=== PATIENT | male | born 1935 | race Hispanic/Latino ===

== ENCOUNTER 2019-08-04 01:36 | Inpatient (IN) | payer MEDICARE ==
[~2019-08-04] VITALS: Ht 177.8 cm; Wt 91.3 kg
[2019-08-04 01:54] LABS: APPEARANCE,URINE Clear (CLEAR); BILIRUBIN,URINE Negative (NEGATIVE); COLOR,URINE Yellow (YELLOW); GLUCOSE, URINE (UA) Negative (NEGATIVE); KETONES,URINE Negative (NEGATIVE); LEUKOCYTE ESTERASE ,URINE Negative (NEGATIVE); NITRATE,URINE Negative (NEGATIVE); OCCULT BLOOD,URINE Negative (NEGATIVE); PROTEIN,URINE Trace mg/dL (NEGATIVE); UROBILINOGEN,URINE 0.2 mg/dL (0.2-1.0)
[2019-08-04] MEDS ORDERED: ACETAMINOPHEN 325 MG TAB ONE (02:06)
[2019-08-04 02:10] LABS: BASOPHILS % (AUTO) 0.4 % (0.0-5.0); EOSINOPHILS % (AUTO) 0.5 % (0.0-8.0); HEMATOCRIT 43.4 % (42-54); LYMPHOCYTES % (AUTO) 5.2 % (21.0-51.0); MEAN CORPUSCULAR HEMOGLOBIN 30.1 pg (27.0-33.0); MEAN CORPUSCULAR HGB CONC 32.5 g/dL (32.0-36.0); MEAN CORPUSCULAR VOLUME 92.7 fL (79-99); MONOCYTES % (AUTO) 4.1 % (3.0-13.0); NEUTROPHILS % (AUTO) 89.4 % (40.0-77.0); PLATELET COUNT (AUTO) 150 K/uL (130-400); RED BLOOD CELL COUNT(AUTO) 4.68 MIL/uL (4.50-6.20); RED CELL DISTRIBUTION WIDTH 15.2 % (11.0-15.5); WHITE BLOOD COUNT (AUTO) 10.9 K/uL (4.8-10.8)
[2019-08-04 02:20] LABS: CARBON DIOXIDE 30 mmol/L (21-32); CHLORIDE 104 mmol/L (101-111); CREATININE 1.1 mg/dL (0.5-1.5); GLOMERULAR FILTR. RATE CALC 68 mL/min (>60); GLUCOSE,RANDOM 105 mg/dL (70-105); POTASSIUM 4.2 mmol/L (3.5-5.1); SODIUM SERUM 139 mmol/L (136-145); UREA NITROGEN, BLOOD 18 mg/dL (7-18)
[2019-08-04 02:21] LABS: INR 0.94 (0.85-1.15); PARTIAL THROMBOPLASTIN TIME 27.8 SEC (26.3-35.5); PROTHROMBIN TIME 10.2 SEC (9.6-11.6)
[2019-08-04 02:39] LABS: ALANINE AMINOTRANSFERASE 21 U/L (12-78); ALBUMIN 3.8 g/dL (3.5-5.0); ASPARTATE AMINOTRANSFERASE 22 U/L (10-37); BILIRUBIN,TOTAL 0.5 mg/dL (0.2-1.0); CREATINE KINASE, TOTAL 76 U/L (21-232); MYOGLOBIN 55 ng/mL (10-92); TOTAL PROTEIN, SERUM 7.5 g/dL (6.0-8.3); TROPONIN I < 0.04 ng/mL (0.00-0.06)
[2019-08-04 02:49] LABS: PLATELET MORPHOLOGY PLT CLUMPS PRESENT
[2019-08-04] MEDS ORDERED: CEFTRIAXONE SODIUM 2 GM VIAL ONE (03:17)
[2019-08-04] MEDS ORDERED: ONDANSETRON HCL 4 MG/2 ML VIAL IV PRN (04:15)
[2019-08-04] MEDS ORDERED: ACETAMINOPHEN 325 MG TAB PO PRN ×2 (04:15)
[2019-08-04] MEDS ORDERED: MORPHINE SULFATE 2 MG/ML 1ML SYG IV PRN (04:15)
[2019-08-04 05:40] VITALS: BP 150/82
[2019-08-04] MEDS ORDERED: METO-391 PO (06:24)
[2019-08-04] MEDS ORDERED: APIX5TAB PO (06:24)
[2019-08-04] MEDS ORDERED: DUTA.5 PO (06:24)
[2019-08-04] MEDS ORDERED: RAMI10CA58 PO (06:24)
[2019-08-04] MEDS ORDERED: ISOS60TA4 PO (06:24)
[2019-08-04 07:58] VITALS: BP 149/80
[2019-08-04] MEDS: METOPROLOL TARTRATE 50 MG TAB PO SCH ×2 (09:07→20:35)
[2019-08-04] MEDS: FAMOTIDINE/PF 20 MG/2 ML VIAL IV SCH ×2 (09:07→20:35)
[2019-08-04] MEDS: CEFTRIAXONE SODIUM 1 GM IVP SCH ×2 (11:12→22:14)
[2019-08-04 11:13] VITALS: BP 148/77
[2019-08-04] MEDS: AZITHROMYCIN 500MG+NS 250ML 250 ML IV SCH (11:13)
--- NOTE | 2019-08-04 13:44 | NUR ---
1240 patient signed IM Letter, I faxed IM Letter to [phone] and placed in chart under consent tab.
--- NOTE | 2019-08-04 16:13 | NUR ---
DCP CM spoke to pt's spouse Ad Gallardo discussed dc plans. Per spouse pt was independent prior to admission, lives at home w/spouse. Denies any equipments/services. Feels safe to go back home, still drives, spouse able to assist with transportation and needs as necessary. DC plan to home once stable. CM to cont to follow up. Addendum: 08/04/19 at 1614 by MISA JASSO LVN CM Amended: Links added.
[2019-08-04 16:19] VITALS: BP 166/94
[2019-08-04] MEDS ORDERED: PHARMACY COMMUNICATION MISC SCH (17:30)
--- NOTE | 2019-08-04 18:50 | NUR ---
Pulse Ox is off patient Saturation levels are good. Addendum: 08/04/19 at 1851 by CASS SALAZAR RT Amended: Links added.
[2019-08-04 20:17] VITALS: BP 165/95
[2019-08-04] MEDS: APIXABAN 5 MG TABLET PO SCH (20:34)
[2019-08-04] MEDS: FINASTERIDE 5 MG TABLET PO SCH (20:35)
[2019-08-04] MEDS: LISINOPRIL 40 MG TABLET PO SCH (20:35)
[2019-08-04] MEDS ORDERED: RAMIPRIL PO SCH (21:00)
[2019-08-04] MEDS ORDERED: APIXABAN 5 MG TABLET PO SCH (21:00)
[2019-08-04 23:12] VITALS: BP 139/77
[2019-08-05 03:33] VITALS: BP 154/89
[2019-08-05 05:39] LABS: BASOPHILS % (AUTO) 0.7 % (0.0-5.0); EOSINOPHILS % (AUTO) 1.1 % (0.0-8.0); HEMATOCRIT 39.9 % (42-54); LYMPHOCYTES % (AUTO) 14.5 % (21.0-51.0); MEAN CORPUSCULAR HEMOGLOBIN 29.7 pg (27.0-33.0); MEAN CORPUSCULAR HGB CONC 32.3 g/dL (32.0-36.0); MEAN CORPUSCULAR VOLUME 91.9 fL (79-99); MONOCYTES % (AUTO) 13.7 % (3.0-13.0); NEUTROPHILS % (AUTO) 69.6 % (40.0-77.0); PLATELET COUNT (AUTO) 138 K/uL (130-400); RED BLOOD CELL COUNT(AUTO) 4.34 MIL/uL (4.50-6.20); RED CELL DISTRIBUTION WIDTH 15.1 % (11.0-15.5); WHITE BLOOD COUNT (AUTO) 5.5 K/uL (4.8-10.8)
[2019-08-05 06:38] LABS: CREATININE 1.2 mg/dL (0.5-1.5); POTASSIUM 3.9 mmol/L (3.5-5.1)
[2019-08-05 08:00] VITALS: BP 150/89
[2019-08-05] MEDS: ISOSORBIDE MONO 60 MG TAB.SR PO SCH (11:49)
[2019-08-05] MEDS: APIXABAN 5 MG TABLET PO SCH ×2 (11:50→21:55)
[2019-08-05] MEDS: METOPROLOL TARTRATE 50 MG TAB PO SCH ×2 (11:50→21:55)
[2019-08-05] MEDS: AZITHROMYCIN 500MG+NS 250ML 250 ML IV SCH (11:51)
[2019-08-05] MEDS: CEFTRIAXONE SODIUM 1 GM IVP SCH ×2 (11:51→21:56)
[2019-08-05] MEDS: FAMOTIDINE/PF 20 MG/2 ML VIAL IV SCH ×2 (11:51→21:55)
[2019-08-05 12:00] VITALS: BP 148/88
[2019-08-05 16:00] VITALS: BP 133/79
[2019-08-05 21:48] VITALS: BP 142/84
[2019-08-05] MEDS: FINASTERIDE 5 MG TABLET PO SCH (21:56)
[2019-08-05] MEDS: LISINOPRIL 40 MG TABLET PO SCH (21:56)
[2019-08-06 00:25] VITALS: BP 140/79
[2019-08-06 04:37] VITALS: BP 150/89
[2019-08-06 06:10] LABS: BASOPHILS % (AUTO) 0.5 % (0.0-5.0); EOSINOPHILS % (AUTO) 2.4 % (0.0-8.0); LYMPHOCYTES % (AUTO) 16.7 % (21.0-51.0); MEAN CORPUSCULAR HGB CONC 32.3 g/dL (32.0-36.0); MEAN CORPUSCULAR VOLUME 92.9 fL (79-99); MONOCYTES % (AUTO) 17.5 % (3.0-13.0); NEUTROPHILS % (AUTO) 62.5 % (40.0-77.0); PLATELET COUNT (AUTO) 142 K/uL (130-400); RED CELL DISTRIBUTION WIDTH 15.1 % (11.0-15.5); WHITE BLOOD COUNT (AUTO) 5.5 K/uL (4.8-10.8)
[2019-08-06 08:00] VITALS: BP 141/86
[2019-08-06] MEDS: METOPROLOL TARTRATE 50 MG TAB PO SCH (09:21)
[2019-08-06] MEDS: APIXABAN 5 MG TABLET PO SCH (09:21)
[2019-08-06] MEDS: ISOSORBIDE MONO 60 MG TAB.SR PO SCH (09:21)
[2019-08-06] MEDS: FAMOTIDINE/PF 20 MG/2 ML VIAL IV SCH (09:22)
[2019-08-06] MEDS: CEFTRIAXONE SODIUM 1 GM IVP SCH (11:00)
[2019-08-06] MEDS: AZITHROMYCIN 500MG+NS 250ML 250 ML IV SCH (11:00)
[2019-08-06] MEDS ORDERED: CEFU500T67 PO (11:40)
[2019-08-06 12:00] VITALS: BP 127/82
--- NOTE | 2019-08-06 13:15 | NUR ---
DISCHARGE PATIENT GIVEN DISCHARGE INSTRUCTIONS VIA TEACH BACK. 20G PIV TO RAC DISCONTINUED, TIP INTACT. RX GIVEN FOR CEFUROXIME 500MG 1 CAP PO BID X 5 DAYS. PATIENT TO FOLLOW UP WITH DR. JUDGE IN 3 TO 5 DAYS. PATIENT STABLE AT THIS TIME. PATIENT WHEELED TO [facility].
== END 2019-08-06 13:13 | disposition home or self-care (01) | DRG 871 ==
LOC: EDH 01:36 → EDHIP 04:15 → OBSVTOIN 04:15 → 3AH 05:04
PROVIDERS: ADMIT Internal Medicine; ATTEND Internal Medicine
DX: A41.9 Sepsis, unspecified organism (principal); J18.9 Pneumonia, unspecified organism; D68.59 Other primary thrombophilia; I10 Essential (primary) hypertension; I48.91 Unspecified atrial fibrillation; I25.10 Atherosclerotic heart disease of native coronary artery without angina pectoris; N40.1 Benign prostatic hyperplasia with lower urinary tract symptoms; R35.0 Frequency of micturition; E66.9 Obesity, unspecified; Z68.28 Body mass index [BMI] 28.0-28.9, adult; Z88.2 Allergy status to sulfonamides; Z79.01 Long term (current) use of anticoagulants; Z95.5 Presence of coronary angioplasty implant and graft; Z79.899 Other long term (current) drug therapy
CPT/HCPCS: 36415; 71045; 71250; 76770; 80048; 80053; 81003; 82550; 82728; 83605; 83615; 83874; 83880; 84145; 84484; 85025; 85378; 85610; 85730; 86140; 87040; 87088; 87633; 87804; 93005; 94760; A4606; G0378; J0456; J0696; J3490

== ENCOUNTER 2022-02-05 16:17 | Observation (INO) | payer MEDICARE ==
[~2022-02-05] VITALS: Ht 177.8 cm; Wt 91.0 kg
[~2022-02-05 16:17] MED LIST: APIX5TAB PO; CEFU500T67 PO; DUTA.5 PO; ISOS60TA77 PO; METO-391 PO; RAMI10CA58 PO
[2022-02-05 16:45] LABS: BASOPHILS % (AUTO) 0.3 % (0.0-5.0); EOSINOPHILS % (AUTO) 0.4 % (0.0-8.0); HEMATOCRIT 41.3 % (42-54); LYMPHOCYTES % (AUTO) 11.5 % (21.0-51.0); MEAN CORPUSCULAR HEMOGLOBIN 30.1 pg (27.0-33.0); MEAN CORPUSCULAR HGB CONC 32.7 g/dL (32.0-36.0); MEAN CORPUSCULAR VOLUME 92.2 fL (79-99); MONOCYTES % (AUTO) 7.5 % (3.0-13.0); NEUTROPHILS % (AUTO) 79.9 % (40.0-77.0); PLATELET COUNT (AUTO) 169 K/uL (130-400); RED BLOOD CELL COUNT(AUTO) 4.48 MIL/uL (4.50-6.20); RED CELL DISTRIBUTION WIDTH 13.7 % (11.0-15.5)
[2022-02-05 16:54] LABS: CREATININE 1.4 mg/dL (0.5-1.5); POTASSIUM 4.2 mmol/L (3.5-5.1)
[2022-02-05 16:59] LABS: ALBUMIN 3.2 g/dL (3.5-5.0); TOTAL PROTEIN, SERUM 7.1 g/dL (6.0-8.3)
[2022-02-05] MEDS ORDERED: ASPIRIN 325MG TAB PO ONE (17:30)
[2022-02-05] MEDS ORDERED: NITROGLYCERIN 1GM OINT 1 INCH/1GM TD ONE (17:30)
[2022-02-05] MEDS ORDERED: LACTULOSE 20 GM/30 ML UDCUP PO PRN (19:00)
[2022-02-05] MEDS ORDERED: ACETAMINOPHEN 325 MG TAB PO PRN ×2 (19:00)
[2022-02-05] MEDS ORDERED: ONDANSETRON 4MG INJ IV PRN (19:00)
[2022-02-05 19:33] LABS: MAGNESIUM 1.9 mg/dL (1.80-2.40); THYROID STIMULATING HORMONE 1.27 uIU/mL (0.36-3.74)
[2022-02-05] MEDS: METOPROLOL TARTRATE 25 MG TAB PO SCH (21:13)
[2022-02-05] MEDS: ATORVASTATIN 20 MG TABLET PO SCH (21:13)
[2022-02-06 00:50] VITALS: BP 130/70
[2022-02-06 04:00] VITALS: BP 114/58
[2022-02-06 08:00] VITALS: BP 132/74
[2022-02-06] MEDS: METOPROLOL TARTRATE 25 MG TAB PO SCH ×2 (09:08→20:46)
[2022-02-06] MEDS: FAMOTIDINE 20MG TAB PO SCH (09:08)
[2022-02-06] MEDS: ASPIRIN 81 MG EC TAB PO SCH (09:08)
[2022-02-06] MEDS ORDERED: RAMI10CA69 PO (11:10)
[2022-02-06] MEDS ORDERED: DUTA0.5C37 PO (11:10)
[2022-02-06] MEDS ORDERED: METO-409 PO (11:10)
[2022-02-06] MEDS ORDERED: ISOS60TA77 PO (11:10)
[2022-02-06 11:23] LABS: CREATININE 1.2 mg/dL (0.5-1.5); MAGNESIUM 1.9 mg/dL (1.80-2.40); POTASSIUM 3.7 mmol/L (3.5-5.1)
[2022-02-06 12:00] VITALS: BP 132/77
[2022-02-06] MEDS ORDERED: KCL 20 MEQ ERTAB PO SCH (12:00)
[2022-02-06] MEDS ORDERED: MAGNESIUM 2GM PREMIX 50ML 50 ML IV PRN (12:00)
[2022-02-06 16:00] VITALS: BP 157/85
[2022-02-06] MEDS ORDERED: 0.9%NACL 1000ML 500 ML IV ONE (19:00)
[2022-02-06] MEDS ORDERED: IOHEXOL 350 MG/ML 100ML INFUS..BTL IV ONE (19:57)
[2022-02-06 20:00] VITALS: BP 162/84
[2022-02-06 20:00] LABS: APPEARANCE,URINE CLEAR (CLEAR); BILIRUBIN,URINE NEGATIVE (NEGATIVE); COLOR,URINE LIGHT-YELLOW (YELLOW); GLUCOSE, URINE (UA) NEGATIVE (NEGATIVE); KETONES,URINE NEGATIVE (NEGATIVE); LEUKOCYTE ESTERASE ,URINE NEGATIVE Leu/uL (NEGATIVE); NITRATE,URINE NEGATIVE (NEGATIVE); OCCULT BLOOD,URINE NEGATIVE (NEGATIVE); PROTEIN,URINE NEGATIVE (NEGATIVE); UROBILINOGEN,URINE 0.2 mg/dL (0.2-1.0)
[2022-02-06] MEDS: ATORVASTATIN 20 MG TABLET PO SCH (20:46)
[2022-02-06] MEDS ORDERED: LISINOPRIL 40 MG TABLET PO SCH (21:00)
[2022-02-06] MEDS ORDERED: LISINOPRIL 20 MG TABLET PO SCH (23:30)
[2022-02-07] VITALS (9 sets, daily range): BP systolic 117–165; BP diastolic 75–98
[2022-02-07 05:18] LABS: BASOPHILS % (AUTO) 0.5 % (0.0-5.0); EOSINOPHILS % (AUTO) 2.7 % (0.0-8.0); HEMATOCRIT 38.2 % (42-54); LYMPHOCYTES % (AUTO) 19.8 % (21.0-51.0); MEAN CORPUSCULAR HEMOGLOBIN 29.9 pg (27.0-33.0); MEAN CORPUSCULAR HGB CONC 32.5 g/dL (32.0-36.0); MONOCYTES % (AUTO) 10.8 % (3.0-13.0); NEUTROPHILS % (AUTO) 65.7 % (40.0-77.0); PLATELET COUNT (AUTO) 150 K/uL (130-400); RED BLOOD CELL COUNT(AUTO) 4.15 MIL/uL (4.50-6.20); RED CELL DISTRIBUTION WIDTH 13.8 % (11.0-15.5); WHITE BLOOD COUNT (AUTO) 7.5 K/uL (4.8-10.8)
[2022-02-07 05:31] LABS: CREATININE 1.1 mg/dL (0.5-1.5); MAGNESIUM 1.9 mg/dL (1.80-2.40); POTASSIUM 4.2 mmol/L (3.5-5.1)
[2022-02-07 05:33] LABS: PROTHROMBIN TIME 10.9 SEC (9.6-11.6)
[2022-02-07 05:34] LABS: PARTIAL THROMBOPLASTIN TIME 28.9 SEC (26.3-35.5)
[2022-02-07] MEDS: ASPIRIN 81 MG EC TAB PO SCH (08:54)
[2022-02-07] MEDS: METOPROLOL TARTRATE 25 MG TAB PO SCH ×2 (08:56→20:16)
[2022-02-07] MEDS: ISOSORBIDE MONO 60MG SR TAB PO SCH (08:56)
[2022-02-07] MEDS: FAMOTIDINE 20MG TAB PO SCH (08:56)
[2022-02-07] MEDS ORDERED: NICARDIPINE 25MG INJ IV ONE (10:38)
[2022-02-07] MEDS ORDERED: HEPARIN 10,000 UNIT/10ML (1,000 UNIT/ML) VIAL ONE (10:38)
[2022-02-07] MEDS ORDERED: FENTANYL CITRATE PF 50 MCG/1 ML 2ML VIAL ONE (10:39)
[2022-02-07] MEDS ORDERED: MIDAZOLAM HCL 1 MG/ML 2ML VIAL ONE (10:39)
[2022-02-07] MEDS ORDERED: IOHEXOL-350 50ML VIAL IV ONE (10:39)
[2022-02-07] MEDS ORDERED: IOHEXOL 350 MG/ML 100ML INFUS..BTL IV ONE ×3 (10:39→12:00)
[2022-02-07] MEDS ORDERED: NITROGLYCERIN 50MG VIAL ONE (10:39)
[2022-02-07] MEDS ORDERED: LIDOCAINE HCL 1% 20 ML VIAL ONE (10:40)
[2022-02-07] MEDS ORDERED: ASPIRIN 325MG EC TAB PO ONE (12:29)
[2022-02-07] MEDS ORDERED: CLOPIDOGREL 300MG TAB ONE (12:29)
[2022-02-07] MEDS ORDERED: ONDANSETRON 4MG INJ IVP PRN (13:00)
[2022-02-07] MEDS ORDERED: TEMAZEPAM 30 MG CAP PO PRN (13:00)
[2022-02-07] MEDS ORDERED: ACETAMINOPHEN WITH CODEINE 1 TAB TAB PO PRN (13:00)
[2022-02-07] MEDS ORDERED: 0.9%NACL 1000ML 1,000 ML IV SCH (13:00)
[2022-02-07] MEDS ORDERED: ASPIRIN 81 MG EC TAB PO SCH (14:30)
[2022-02-07] MEDS ORDERED: METOPROLOL TARTRATE 25 MG TAB PO SCH (14:30)
[2022-02-07] MEDS: ATORVASTATIN 20 MG TABLET PO SCH (20:16)
[2022-02-07] MEDS ORDERED: LISINOPRIL 20 MG TABLET PO SCH (21:00)
[2022-02-08 04:03] VITALS: BP 145/81
[2022-02-08 05:07] LABS: HEMATOCRIT 37.8 % (42-54); MEAN CORPUSCULAR HGB CONC 32.5 g/dL (32.0-36.0); MEAN CORPUSCULAR VOLUME 92.2 fL (79-99); RED BLOOD CELL COUNT(AUTO) 4.1 MIL/uL (4.50-6.20); WHITE BLOOD COUNT (AUTO) 11.3 K/uL (4.8-10.8)
[2022-02-08 05:23] LABS: CREATININE 1.2 mg/dL (0.5-1.5); POTASSIUM 4.3 mmol/L (3.5-5.1)
[2022-02-08 07:27] VITALS: BP 149/75
[2022-02-08] MEDS: ISOSORBIDE MONO 60MG SR TAB PO SCH (08:51)
[2022-02-08] MEDS: ASPIRIN 81 MG EC TAB PO SCH (08:51)
[2022-02-08] MEDS: FAMOTIDINE 20MG TAB PO SCH (08:52)
[2022-02-08] MEDS ORDERED: METOPROLOL SUCCINATE 50 MG TAB.SR.24H PO SCH (09:00)
[2022-02-08] MEDS ORDERED: PANTOPRAZOLE 40 MG TAB DR PO SCH (09:00)
[2022-02-08] MEDS ORDERED: CLOPIDOGREL 75MG TAB PO SCH (09:00)
[2022-02-08] MEDS ORDERED: DUTASTERIDE 0.5 MG PO SCH (09:00)
[2022-02-08] MEDS ORDERED: AMLODIPINE 5 MG TAB PO SCH (09:00)
[2022-02-08] MEDS ORDERED: ATOR40TA69 PO (10:19)
[2022-02-08] MEDS ORDERED: METO-409 PO (10:19)
[2022-02-08] MEDS ORDERED: LISI20TA24 PO (10:19)
[2022-02-08] MEDS ORDERED: CLOP-31 PO (10:19)
[2022-02-08] MEDS ORDERED: PANT40TA PO (10:19)
[2022-02-08] MEDS ORDERED: AMLO5TAB4 PO (10:19)
[2022-02-08] MEDS ORDERED: AEC81 PO (10:19)
[2022-02-08 12:27] VITALS: BP 126/73
[2022-02-08] MEDS ORDERED: ATORVASTATIN 40 MG TABLET PO SCH (21:00)
== END 2022-02-08 13:10 | disposition home or self-care (01) ==
LOC: EDH 16:17 → EDHIP 18:46 → INTOOBSV 18:46 → 3BH 02-06 00:57 → 3AH 02-07 14:26 → 3BH 02-07 14:27
PROVIDERS: ADMIT Internal Medicine; ATTEND Internal Medicine
DX: I48.0 Paroxysmal atrial fibrillation (principal); R77.8 Other specified abnormalities of plasma proteins; E78.5 Hyperlipidemia, unspecified; I11.0 Hypertensive heart disease with heart failure; I50.9 Heart failure, unspecified; I24.9 Acute ischemic heart disease, unspecified; I25.110 Atherosclerotic heart disease of native coronary artery with unstable angina pectoris; I25.2 Old myocardial infarction; I21.A1 Myocardial infarction type 2; N40.0 Benign prostatic hyperplasia without lower urinary tract symptoms; R22.43 Localized swelling, mass and lump, lower limb, bilateral; Z79.02 Long term (current) use of antithrombotics/antiplatelets; Z79.82 Long term (current) use of aspirin; Z79.899 Other long term (current) drug therapy; Z95.5 Presence of coronary angioplasty implant and graft
CPT/HCPCS: 99285; 84443; 83735 ×3; 84484 ×3; 80061 ×2; 80053; 83880; 85025 ×2; 84439; 36415 ×4; 71045; 93005 ×2; 80048 ×3; 85378; 81003; 71270; 93306; 93356; 93970; 93460; 96374; 85610; 85730; 97161; 97039; 84145; 85027; 97116; J7030; Q9967 ×5; C1769 ×4; C1887; C1894 ×2; C1874 ×2; C1725; Q9965 ×3; J3475; J3010; J3490 ×2; J1644 ×3; J2250; C9606; G0378 ×3; 99156; 99157; C9600